=== PATIENT | female | born 1940 | race Caucasian/White ===

== ENCOUNTER → 2021-06-25 | Emergency (ER) | payer MEDICAID, MEDICARE ==
[~2021-06-25] MED LIST: Cefepime 2 GM VIAL ONE; Sodium Chloride 0.9% 1,000 ML ONE; Sodium Chloride 0.9% 100 ML ONE
[2021-06-25 18:49] LABS: #Basophils 0.1 thou/uL (0.0-0.2); #Lymphocytes 1.4 thou/uL (1.20-3.40); #Monocytes 0.7 thou/uL (0.11-0.59); #Neutrophils 4.7 thou/uL (1.40-6.50); %Basophils 1.4 % (0.0-1.0); %Eosinophils 0.4 % (0.0-10.0); %Lymphocytes 20.5 % (21.0-51.0); %Monocytes 10.5 % (0.0-10.0); %Neutrophils 67.1 % (42.0-75.0); Hemoglobin 13.9 g/dL (12.0-16.0); Mean Corpuscular HGB CONC 31.8 g/dL (32.0-36.0); Mean Corpuscular Hemoglobin 28.8 pg (27.0-31.0); Mean Corpuscular Volume 90.5 fL (78.0-98.0); Mean Platelet Volume 8.4 fL (7.4-10.4); Platelet Count 239 thou/uL (130-400); RBC Distribution Width 12.7 % (11.5-14.5); Red Blood Cell (RBC) Count 4.85 mill/uL (4.20-5.40)
[2021-06-25 19:11] LABS: Bilirubin Negative (Negative); Blood, Urine Negative (Negative); Clarity Slightly Cloudy (Clear); Glucose, Urine (Dipstick) Negative (Negative); Ketone, Urine Trace mg/dL (Negative); Leukocyte Small (Negative); Nitrite Positive (Negative); Protein, Urine (Dipstick) Negative (Neg-Trace); Urobilinogen 0.2 mg/dL (Less than 2); pH, Urine 5.5 (5.0-9.0)
[2021-06-25 19:12] LABS: Specific Gravity, Urine 1.023 (1.005-1.030)
[2021-06-25 19:15] LABS: Bacteria/HPF 3+ HPF (None Seen); RBC/HPF 0-3 HPF (0-3); WBC/HPF Greater than 50 HPF (0-3)
[2021-06-25 19:21] LABS: ALT (SGPT) 17 U/L (8-55); AST (SGOT) 34 U/L (5-34); Albumin 3.6 g/dL (3.4-4.8); Alkaline Phosphatase 51 U/L (40-110); Anion Gap 20 mmol/L (10-20); BUN (Urea Nitrogen) 22 mg/dL (9.8-20.1); Bilirubin, Total 0.3 mg/dL (0.2-1.2); CK (CPK) 27 U/L (29-168); Calc. Creatinine Clearance 0 mL/min (70-130); Calcium 8.9 mg/dL (7.8-10.44); Carbon Dioxide 23 mmol/L (23-31); Chloride 100 mmol/L (98-107); Globulin 3.1 g/dL (2.4-3.5); Glucose 177 mg/dL (83-110); Lipase 13 U/L (8-78); Potassium 5.5 mmol/L (3.5-5.1); Protein, Total 6.7 g/dL (5.8-8.1); Sodium 137 mmol/L (136-145)
[2021-06-25 20:44] LABS: SARS-CoV-2 NAA Rapid Test DETECTED (NotDetected)
[2021-06-25 21:49] LABS: Lactic Acid 1.5 mmol/L (0.5-2.2)
[2021-06-25 22:11] LABS: Troponin I Less than 0.028 ng/mL (< 0.028)
== END ==
LOC: NAV ERS 17:50
DX: U07.1 COVID-19 (principal); N39.0 Urinary tract infection, site not specified; R00.1 Bradycardia, unspecified; R74.02 Elevation of levels of lactic acid dehydrogenase [LDH]; I44.0 Atrioventricular block, first degree; I10 Essential (primary) hypertension; E11.9 Type 2 diabetes mellitus without complications; Z79.4 Long term (current) use of insulin; Z79.899 Other long term (current) drug therapy
CPT/HCPCS: 51701; 70450; 80053; 81003; 81015; 82550; 83605; 83690; 84443; 84484; 85025; 87040; 87086; 87149; 93005; 96365; J0692; J3490; J7050; U0002